=== PATIENT | male | born 1995 | race Caucasian/White ===

== ENCOUNTER 2018-07-31 13:10 | Emergency (ER) | payer MEDICAID, OTHER ==
[~2018-07-31] VITALS: Ht 177.8 cm; Wt 70.3 kg
--- NOTE | 2018-07-31 13:10 | NUR ---
PT CELIO FROM HOME; VERBALIZES "I WANT TO ", PT AAOX4, ENDORSES HE "WANTS TO " NO PLAN IN PLACE, SUICIDE PRECATIONS STARTED, RESPRIATIONS EVEN AND UNLABORED, NO SOB, NAD NOTED, VSS, TO ER BED 14, PENDING ER PROVIDER CRISTALAL
[2018-07-31 13:46] LABS: APPEARANCE,URINE Clear (CLEAR); BILIRUBIN,URINE Negative (NEGATIVE); BLOOD, URINE Negative Ery/uL (NEGATIVE); COLOR,URINE Yellow (YELLOW); KETONES,URINE Trace (NEGATIVE); LEUKOCYTE ESTERASE ,URINE Negative (NEGATIVE); NITRITE, URINE Negative (NEGATIVE); PROTEIN,URINE Trace mg/dl (NEGATIVE); UGLUCOSE Negative (NEGATIVE)
[2018-07-31 13:47] LABS: BASOPHILS # (AUTO) 0.1 /CMM (0.0-0.2); BASOPHILS % (AUTO) 1.2 % (0.0-2.0); EOSINOPHILS % (AUTO) 0.4 % (0.0-6.0); HEMATOCRIT 44 % (39-51); HEMOGLOBIN 14.8 g/dL (13.5-17.5); LYMPHOCYTES % (AUTO) 17.6 % (20.0-44.0); MEAN CORPUSCULAR HGB CONC 34 g/dl (31.0-36.0); MEAN CORPUSCULAR VOLUME 88 fL (80-96); MONOCYTES # (AUTO) 0.3 /CMM (0.1-1.30); MONOCYTES % (AUTO) 5.8 % (2.0-12.0); NEUTROPHILS # (AUTO) 4.2 /CMM (1.8-8.9); PLATELET COUNT (AUTO) 261 /CMM (150-450); RED BLOOD CELL COUNT(AUTO) 5.01 MIL/uL (4.5-6.0); WHITE BLOOD COUNT (AUTO) 5.7 K/uL (4.3-11.0)
[2018-07-31 14:09] LABS: CALCIUM, SERUM 9.5 mg/dL (8.5-10.1); CARBON DIOXIDE 28 mmol/L (21-32); CHLORIDE 103 mmol/L (98-107); CREATININE 1.1 mg/dL (0.6-1.3); GLUCOSE 106 mg/dL (74-106); POTASSIUM 4.3 mmol/L (3.5-5.1); SODIUM SERUM 140 mmol/L (136-145); UREA NITROGEN, BLOOD 15 mg/dL (7-18)
[2018-07-31 14:09] LABS: BACTERIA,URINE Few /HPF (None Seen); RBC,URINE 0-2 /HPF (0-2); SQUAMOUS EPITHELIAL CELL,UR Rare /HPF (None Seen); WBC,URINE 0-2 /HPF (0-3)
[2018-07-31 14:22] LABS: ALANINE AMINOTRANSFERASE 18 U/L (12-78); ALBUMIN 4.9 g/dL (3.4-5.0); ALCOHOL, BLOOD < 3 mg/dL (0-0); ALKALINE PHOSPHATASE 58 U/L (46-116); ASPARTATE AMINOTRANSFERASE 19 U/L (15-37); BILIRUBIN,DIRECT 0.2 mg/dL (0.0-0.2); BILIRUBIN,TOTAL 1.1 mg/dL (0.2-1.0); TOTAL PROTEIN, SERUM 8.6 g/dL (6.4-8.2)
[2018-07-31 14:26] LABS: ACETAMINOPHEN 0 ug/ml (10-30); SALICYLATE 2.2 mg/dL (2.8-20.0)
[2018-07-31] MEDS ORDERED: LORAZEPAM 1 MG TABLET PO ONE (17:30)
[2018-07-31] MEDS ORDERED: LORAZEPAM 1 MG TABLET ONE (17:35)
--- NOTE | 2018-07-31 19:37 | NUR ---
ASSUMED CARE OF PT AT THIS TIME. PT ON THE PHONE. FAMILY AT BEDSIDE. CARE PLAN UPDATED OF PENDING CALL FROM [facility]. DENIES ANY SX'S AT THIS TIME. CALM AND COOPERATIVE. RESP EVEN AND UNLABORED.
[2018-07-31 20:19] VITALS: BP 114/75
--- NOTE | 2018-07-31 20:20 | NUR ---
CALLED [facility] AND SPOKE TO IJ/CHG AND STATES "WE WILL CALL YOU RIGHT BACK".
--- NOTE | 2018-07-31 21:49 | NUR ---
GAVE REPORT TO IJ, FROM [facility], DIRECT # [phone] ext [phone] ROOM [id number]
--- NOTE | 2018-07-31 21:57 | NUR ---
CALLED [facility] FOR THIS PATIENT ETA [phone] TRIP #[id number]
--- NOTE | 2018-07-31 23:17 | NUR ---
PT DISCHARGE HOME WITH FATHER, PT LEFT IN STABLE CONDITION, PT WAS ON A VOLUNTARY PSYCH ADMISSION, DOES NOT WANT TO STAY. AMBULATORY STEADY GAIT
== END 2018-07-31 23:22 | disposition home or self-care (01) ==
LOC: ER 13:20
DX: R45.851 Suicidal ideations (principal); F32.9 Major depressive disorder, single episode, unspecified; Z90.89 Acquired absence of other organs
CPT/HCPCS: 36415; 80048; 80076; 80305; 80329; 81001; 85025; 99284; A4606; G0480 ×2; Z7610; 81000-TC

== ENCOUNTER 2020-08-02 19:58 | Emergency (ER) | payer OTHER ==
[~2020-08-02] VITALS: Ht 175.3 cm; Wt 64.4 kg
[2020-08-02 20:10] VITALS: BP 119/68
== END 2020-08-02 20:22 | disposition home or self-care (01) ==
LOC: ER 20:06
DX: Z76.0 Encounter for issue of repeat prescription (principal); Z98.890 Other specified postprocedural states

== ENCOUNTER 2021-01-22 05:35 | Emergency (ER) | payer OTHER ==
[~2021-01-22] VITALS: Ht 177.8 cm; Wt 74.8 kg
[2021-01-22 05:45] VITALS: BP 134/82
--- NOTE | 2021-01-22 06:00 | NUR ---
PT BIBFAMILY C/O ANXIETY. PT STATES "I THINK SOMEONE IS AFTER ME." PT REFUSING TO ANSWER FURTHER QUESTIONS. DENIES SI/HI. PT CONNECTED TO THE MONITOR AND PX
--- NOTE | 2021-01-22 06:53 | NUR ---
Patient discharged to home in stable condition. Written and verbal after care instructions given. Patient verbalizes understanding of instruction. Pt ambulatory w/ steady gait
[2021-01-22] MEDS ORDERED: ARIP10TA9 PO (07:04)
== END 2021-01-22 07:10 | disposition home or self-care (01) ==
LOC: ER 05:39
DX: F41.9 Anxiety disorder, unspecified (principal); F32.9 Major depressive disorder, single episode, unspecified; F12.10 Cannabis abuse, uncomplicated; Z90.89 Acquired absence of other organs

== ENCOUNTER 2021-01-24 11:29 | Emergency (ER) | payer OTHER ==
[~2021-01-24] VITALS: Ht 177.8 cm; Wt 74.8 kg
[~2021-01-24 11:29] MED LIST: ARIP10TA9 PO
--- NOTE | 2021-01-24 11:40 | NUR ---
The patient is BIBA [id number] "Family called Having Bizarre Behavior NOT communicating". The patient states he has tapeworms. Denies pain. Abdomen soft and non-distended. In room air and denies SOB. Respiration regular and unlabored. The patient is alert and oriented x3. noted talking to self. Denies having visual or auditory hallucinations. Denies SI/HI. Will continue to monitor the patient.
--- NOTE | 2021-01-24 12:08 | NUR ---
The patient alert and oriented x3. Denies SI/HI.Patient discharged to home in stable condition. Written and verbal after care instructions given. Patient verbalizes understanding of instruction but refused to sign discharge papers.
[2021-01-24 12:09] VITALS: BP 136/72
== END 2021-01-24 12:09 | disposition home or self-care (01) ==
LOC: ER 11:48
DX: F41.9 Anxiety disorder, unspecified (principal); Z90.89 Acquired absence of other organs; Z79.899 Other long term (current) drug therapy